=== PATIENT | female | born 2000 | race Two or more races ===

== ENCOUNTER 2024-06-24 04:26 | Emergency (ER) | payer OTHER ==
[~2024-06-24] VITALS: Ht 167.6 cm; Wt 68.0 kg
[2024-06-24 07:14] LABS: COCAINE NEGATIVE (NEGATIVE); METHADONE NEGATIVE (NEGATIVE); OPIATES NEGATIVE (NEGATIVE); THC ( Cannabinoids) NEGATIVE (NEGATIVE)
== END 2024-06-24 08:10 ==
LOC: ER 04:26
PROVIDERS: General Practice
DX: R11.10 Vomiting, unspecified (principal); R42 Dizziness and giddiness; F10.929 Alcohol use, unspecified with intoxication, unspecified